=== PATIENT | female | born 1960 | race Caucasian/White ===

== ENCOUNTER 2021-10-03 16:07 | Inpatient (IN) | payer MEDICARE, MEDICAID ==
[~2021-10-03] VITALS: Ht 160 cm; Wt 110.7 kg
[2021-10-03 17:59] LABS: BASOPHILS % 0.8 % (0.0-2.0); EOSINOPHILS % 0.6 % (0.0-5.0); HEMATOCRIT. 36.2 % (36.0-48.0); HEMOGLOBIN. 11.4 g/dL (12.0-16.0); LYMPHOCYTES % 11.5 % (20.0-50.0); MEAN CORPUSCULAR HEMOGLOBIN 24.3 pg (28.0-32.0); MEAN CORPUSCULAR VOLUME 77.4 fL (81.0-99.0); MONOCYTES % 4.7 % (2.0-8.0); NEUTROPHILS % 82.4 % (40.0-76.0); PLATELET 707 x1000/uL (130-400); RED BLOOD CELL COUNT 4.68 mill/uL (4.2-5.4); RED CELL DISTRIBUTION WIDTH 15.7 % (11.6-14.6)
[2021-10-03 18:02] LABS: CHLORIDE 93 mEq/L (98-107)
[2021-10-04] VITALS (8 sets, daily range): BP systolic 109–156; BP diastolic 48–79
[2021-10-04] MEDS ORDERED: DEXTROSE 50% WATER 50ML SYRINGE IV PRN (01:30)
[2021-10-04] MEDS ORDERED: ACETAMINOPHEN 650MG/20.3ML UDC PO PRN (01:30)
[2021-10-04] MEDS ORDERED: SODIUM CHLORIDE 0.9% 1,000 ML IV SCH (01:30)
[2021-10-04] MEDS ORDERED: AMLO10TA4 PO (02:30)
[2021-10-04] MEDS ORDERED: LINA5TAB PO (02:30)
[2021-10-04] MEDS ORDERED: LACT10SO7 PO (02:30)
[2021-10-04] MEDS ORDERED: LEVO100T PO (02:30)
[2021-10-04] MEDS ORDERED: METF-416 PO (02:30)
[2021-10-04] MEDS ORDERED: LACT1CAP60 PO (02:30)
[2021-10-04] MEDS ORDERED: ASPI-1497 PO (02:30)
[2021-10-04] MEDS ORDERED: XALAO EACHEYE (02:30)
[2021-10-04] MEDS ORDERED: EMPA25TA PO (02:30)
[2021-10-04] MEDS ORDERED: KEPP500 (02:30)
[2021-10-04] MEDS ORDERED: TRU10 EACHEYE (02:30)
[2021-10-04] MEDS ORDERED: OLAN7.5T3 MT (02:30)
[2021-10-04] MEDS ORDERED: HUM100IN SQ (02:30)
[2021-10-04] MEDS ORDERED: ATOR20TA PO (02:30)
[2021-10-04] MEDS ORDERED: LISI20TA31 PO (02:30)
[2021-10-04] MEDS ORDERED: IMDUR PO (02:30)
[2021-10-04] MEDS: BLOOD SUGAR DIAGNOSTIC STRIP TEST SCH ×4 (06:14→21:27)
[2021-10-04] MEDS: INSULIN LISPRO 100 UNITS/ML SUBCUT SCH ×4 (06:15→21:27)
[2021-10-04 07:45] LABS: BASOPHILS % 0.4 % (0.0-2.0); EOSINOPHILS % 1.4 % (0.0-5.0); HEMATOCRIT. 34.4 % (36.0-48.0); HEMOGLOBIN. 11.1 g/dL (12.0-16.0); LYMPHOCYTES % 13.9 % (20.0-50.0); MEAN CORPUSCULAR HEMOGLOBIN 25.2 pg (28.0-32.0); MEAN CORPUSCULAR VOLUME 78.6 fL (81.0-99.0); MEAN PLATELET VOLUME 7.7 fl (7.4-10.4); MONOCYTES % 5.7 % (2.0-8.0); NEUTROPHILS % 78.6 % (40.0-76.0); PLATELET 682 x1000/uL (130-400); RED BLOOD CELL COUNT 4.38 mill/uL (4.2-5.4); RED CELL DISTRIBUTION WIDTH 15.7 % (11.6-14.6)
[2021-10-04 08:00] LABS: CHLORIDE 96 mEq/L (98-107)
[2021-10-04] MEDS: ACETAMINOPHEN 325MG TABLET PO PRN ×3 (08:38→21:26)
[2021-10-04] MEDS: ENOXAPARIN 30MG/0.3ML SYR SUBCUT SCH ×2 (08:38→21:25)
[2021-10-04] MEDS: OLANZAPINE 2.5MG TABLET PO SCH (10:35)
[2021-10-05] VITALS: BP 150/58
[2021-10-05] MEDS: ACETAMINOPHEN 325MG TABLET PO PRN ×2 (02:15→08:36)
[2021-10-05 04:00] VITALS: BP 129/63
[2021-10-05 05:43] LABS: BASOPHILS % 0.8 % (0.0-2.0); EOSINOPHILS % 3.7 % (0.0-5.0); HEMATOCRIT. 36.6 % (36.0-48.0); LYMPHOCYTES % 20.4 % (20.0-50.0); MEAN CORPUSCULAR HEMOGLOBIN 25.9 pg (28.0-32.0); MEAN CORPUSCULAR VOLUME 78.9 fL (81.0-99.0); MEAN PLATELET VOLUME 7.7 fl (7.4-10.4); MONOCYTES % 6.9 % (2.0-8.0); NEUTROPHILS % 68.2 % (40.0-76.0); PLATELET 714 x1000/uL (130-400); RED BLOOD CELL COUNT 4.64 mill/uL (4.2-5.4); RED CELL DISTRIBUTION WIDTH 15.8 % (11.6-14.6)
[2021-10-05 06:04] LABS: CHLORIDE 95 mEq/L (98-107)
[2021-10-05] MEDS: BLOOD SUGAR DIAGNOSTIC STRIP TEST SCH ×4 (06:06→21:00)
[2021-10-05] MEDS: INSULIN LISPRO 100 UNITS/ML SUBCUT SCH ×4 (06:06→22:38)
[2021-10-05 06:11] LABS: PHOSPHORUS 3.4 mg/dL (2.5-4.9)
[2021-10-05 08:00] VITALS: BP 162/70
[2021-10-05] MEDS: OLANZAPINE 2.5MG TABLET PO SCH (08:35)
[2021-10-05] MEDS: ENOXAPARIN 30MG/0.3ML SYR SUBCUT SCH (08:35)
[2021-10-05 12:00] VITALS: BP 149/77
[2021-10-05] MEDS ORDERED: FUROSEMIDE 40MG/4ML VIAL IVP NR (13:15)
[2021-10-05] MEDS ORDERED: HYDROCODONE/ACETAMINOPHEN 5/325MG TABLET PO PRN (13:15)
[2021-10-05] MEDS: AMLODIPINE 2.5MG TABLET PO SCH (13:30)
[2021-10-05] MEDS: LEVOTHYROXINE SODIUM 100MCG TABLET PO SCH ×2 (13:30→22:36)
[2021-10-05] MEDS ORDERED: NALOXONE HCL 0.4MG/ML VIAL IV PRN (13:45)
[2021-10-05 16:00] VITALS: BP 114/62
[2021-10-05 20:00] VITALS: BP 139/58
[2021-10-05] MEDS: LEVETIRACETAM 500MG TABLET PO SCH (22:36)
[2021-10-05] MEDS: ENOXAPARIN 40MG/0.4ML SYR SUBCUT SCH (22:37)
[2021-10-06] VITALS: BP 110/65
[2021-10-06 04:00] VITALS: BP 161/80
[2021-10-06] MEDS: ACETAMINOPHEN 325MG TABLET PO PRN (05:51)
[2021-10-06 06:44] LABS: BASOPHILS % 0.8 % (0.0-2.0); EOSINOPHILS % 4.3 % (0.0-5.0); HEMOGLOBIN. 12.1 g/dL (12.0-16.0); LYMPHOCYTES % 20.7 % (20.0-50.0); MEAN CORPUSCULAR HEMOGLOBIN 25.5 pg (28.0-32.0); MEAN CORPUSCULAR VOLUME 79.9 fL (81.0-99.0); MEAN PLATELET VOLUME 7.6 fl (7.4-10.4); MONOCYTES % 8.4 % (2.0-8.0); NEUTROPHILS % 65.8 % (40.0-76.0); PLATELET 748 x1000/uL (130-400); RED BLOOD CELL COUNT 4.76 mill/uL (4.2-5.4); RED CELL DISTRIBUTION WIDTH 16.1 % (11.6-14.6)
[2021-10-06] MEDS: LEVOTHYROXINE SODIUM 100MCG TABLET PO SCH ×2 (06:56→08:44)
[2021-10-06] MEDS: BLOOD SUGAR DIAGNOSTIC STRIP TEST SCH ×4 (06:56→19:37)
[2021-10-06] MEDS: INSULIN LISPRO 100 UNITS/ML SUBCUT SCH ×4 (06:56→20:35)
[2021-10-06 07:10] LABS: C REACTIVE PROTEIN QUANT 4.9 mg/L (0.0-3.0)
[2021-10-06 08:00] VITALS: BP 171/72
[2021-10-06] MEDS: LEVETIRACETAM 500MG TABLET PO SCH (08:44)
[2021-10-06] MEDS: OLANZAPINE 2.5MG TABLET PO SCH (08:44)
[2021-10-06] MEDS: ENOXAPARIN 40MG/0.4ML SYR SUBCUT SCH ×2 (08:45→20:32)
[2021-10-06] MEDS: AMLODIPINE 2.5MG TABLET PO SCH (09:00)
[2021-10-06 12:00] VITALS: BP 187/55
[2021-10-06] MEDS ORDERED: INSLIS SUBCUT (15:53)
[2021-10-06] MEDS ORDERED: KEPP500 PO (15:53)
[2021-10-06] MEDS ORDERED: LEVO100T9 PO (15:53)
[2021-10-06] MEDS ORDERED: AMLO5TAB88 PO (15:53)
[2021-10-06] MEDS ORDERED: XALAO EACHEYE (15:53)
[2021-10-06] MEDS ORDERED: OLAN2.5T29 PO (15:53)
[2021-10-06 16:00] VITALS: BP 160/71
[2021-10-06 20:00] VITALS: BP 149/70
[2021-10-06] MEDS: LATANOPROST 0.005% OPHTH DROPS 2.5ML EACHEYE SCH (20:32)
[2021-10-07] VITALS: BP 139/80
[2021-10-07 04:00] VITALS: BP 156/71
[2021-10-07] MEDS: BLOOD SUGAR DIAGNOSTIC STRIP TEST SCH ×4 (05:03→20:19)
[2021-10-07] MEDS: LEVOTHYROXINE SODIUM 100MCG TABLET PO SCH ×2 (05:08→08:16)
[2021-10-07] MEDS: INSULIN LISPRO 100 UNITS/ML SUBCUT SCH ×4 (05:11→20:19)
[2021-10-07 06:04] LABS: BASOPHILS % 0.9 % (0.0-2.0); EOSINOPHILS % 4.3 % (0.0-5.0); HEMATOCRIT. 36.3 % (36.0-48.0); HEMOGLOBIN. 11.7 g/dL (12.0-16.0); LYMPHOCYTES % 16.8 % (20.0-50.0); MEAN CORPUSCULAR HEMOGLOBIN 25.4 pg (28.0-32.0); MEAN CORPUSCULAR VOLUME 78.9 fL (81.0-99.0); MEAN PLATELET VOLUME 7.5 fl (7.4-10.4); MONOCYTES % 6.7 % (2.0-8.0); NEUTROPHILS % 71.3 % (40.0-76.0); PLATELET 696 x1000/uL (130-400); RED CELL DISTRIBUTION WIDTH 15.7 % (11.6-14.6)
[2021-10-07 06:05] LABS: CHLORIDE 92 mEq/L (98-107)
[2021-10-07 08:00] VITALS: BP 172/87
[2021-10-07] MEDS: OLANZAPINE 2.5MG TABLET PO SCH (08:16)
[2021-10-07] MEDS: AMLODIPINE 5MG TABLET PO SCH (08:16)
[2021-10-07] MEDS: LEVETIRACETAM 500MG TABLET PO SCH (08:16)
[2021-10-07] MEDS: ACETAMINOPHEN 325MG TABLET PO PRN (08:17)
[2021-10-07] MEDS: ENOXAPARIN 40MG/0.4ML SYR SUBCUT SCH ×2 (08:17→20:18)
[2021-10-07 12:00] VITALS: BP 158/72
[2021-10-07] MEDS: FUROSEMIDE 40MG/4ML VIAL IVP NR ×2 (14:23→15:25)
[2021-10-07 16:00] VITALS: BP 174/81
[2021-10-07] MEDS: CLONIDINE 0.1MG TABLET PO PRN (17:40)
[2021-10-07 20:00] VITALS: BP 104/77
[2021-10-07] MEDS: LATANOPROST 0.005% OPHTH DROPS 2.5ML EACHEYE SCH (20:17)
[2021-10-08] VITALS: BP 128/66
[2021-10-08] MEDS: CLONIDINE 0.1MG TABLET PO PRN ×2 (01:48→08:29)
[2021-10-08] MEDS: ACETAMINOPHEN 325MG TABLET PO PRN ×3 (01:52→15:45)
[2021-10-08 04:00] VITALS: BP 159/70
[2021-10-08 06:30] LABS: BASOPHILS % 0.7 % (0.0-2.0); EOSINOPHILS % 4.5 % (0.0-5.0); HEMATOCRIT. 37.3 % (36.0-48.0); HEMOGLOBIN. 12.4 g/dL (12.0-16.0); LYMPHOCYTES % 20.1 % (20.0-50.0); MEAN CORPUSCULAR HEMOGLOBIN 25.8 pg (28.0-32.0); MEAN CORPUSCULAR VOLUME 77.7 fL (81.0-99.0); MEAN PLATELET VOLUME 7.4 fl (7.4-10.4); MONOCYTES % 7.3 % (2.0-8.0); NEUTROPHILS % 67.4 % (40.0-76.0); PLATELET 699 x1000/uL (130-400); RED CELL DISTRIBUTION WIDTH 15.8 % (11.6-14.6)
[2021-10-08] MEDS: LEVOTHYROXINE SODIUM 100MCG TABLET PO SCH ×2 (06:33→08:29)
[2021-10-08 06:53] LABS: CHLORIDE 93 mEq/L (98-107)
[2021-10-08 07:01] LABS: PHOSPHORUS 3.9 mg/dL (2.5-4.9)
[2021-10-08] MEDS: INSULIN LISPRO 100 UNITS/ML SUBCUT SCH ×4 (07:31→20:15)
[2021-10-08] MEDS: BLOOD SUGAR DIAGNOSTIC STRIP TEST SCH ×4 (07:32→20:08)
[2021-10-08 08:00] VITALS: BP 168/69
[2021-10-08] MEDS: OLANZAPINE 2.5MG TABLET PO SCH (08:29)
[2021-10-08] MEDS: ENOXAPARIN 40MG/0.4ML SYR SUBCUT SCH ×2 (08:29→20:07)
[2021-10-08] MEDS: LEVETIRACETAM 500MG TABLET PO SCH (08:29)
[2021-10-08] MEDS: AMLODIPINE 5MG TABLET PO SCH (08:29)
[2021-10-08 12:00] VITALS: BP 158/73
[2021-10-08] MEDS: CLONIDINE 0.1MG TABLET PO SCH ×2 (14:12→20:08)
[2021-10-08 16:00] VITALS: BP 141/54
[2021-10-08 20:00] VITALS: BP 147/54
[2021-10-08] MEDS: BENZTROPINE MESYLATE 0.5MG TABLET PO SCH (20:07)
[2021-10-08] MEDS: HALOPERIDOL 5MG TABLET PO SCH (20:08)
[2021-10-08] MEDS: LATANOPROST 0.005% OPHTH DROPS 2.5ML EACHEYE SCH (20:08)
[2021-10-09] VITALS: BP 140/55
[2021-10-09 04:00] VITALS: BP 168/63
[2021-10-09] MEDS: BLOOD SUGAR DIAGNOSTIC STRIP TEST SCH ×3 (05:51→16:58)
[2021-10-09] MEDS: CLONIDINE 0.1MG TABLET PO SCH ×2 (05:51→13:49)
[2021-10-09] MEDS: LEVOTHYROXINE SODIUM 100MCG TABLET PO SCH (05:51)
[2021-10-09] MEDS: INSULIN LISPRO 100 UNITS/ML SUBCUT SCH ×3 (06:00→16:58)
[2021-10-09 08:00] VITALS: BP 166/65
[2021-10-09] MEDS: LEVETIRACETAM 500MG TABLET PO SCH (08:38)
[2021-10-09] MEDS: HALOPERIDOL 5MG TABLET PO SCH (08:38)
[2021-10-09] MEDS: AMLODIPINE 5MG TABLET PO SCH (08:39)
[2021-10-09] MEDS: ENOXAPARIN 40MG/0.4ML SYR SUBCUT SCH (08:39)
[2021-10-09] MEDS: BENZTROPINE MESYLATE 0.5MG TABLET PO SCH (08:39)
[2021-10-09] MEDS: ACETAMINOPHEN 325MG TABLET PO PRN ×2 (08:47→13:53)
[2021-10-09 12:00] VITALS: BP 158/67
[2021-10-09 12:29] LABS: BASOPHILS % 1.3 % (0.0-2.0); EOSINOPHILS % 6.9 % (0.0-5.0); HEMATOCRIT. 37.6 % (36.0-48.0); HEMOGLOBIN. 11.8 g/dL (12.0-16.0); LYMPHOCYTES % 22.9 % (20.0-50.0); MEAN CORPUSCULAR HEMOGLOBIN 24.8 pg (28.0-32.0); MEAN CORPUSCULAR VOLUME 78.9 fL (81.0-99.0); MEAN PLATELET VOLUME 7.6 fl (7.4-10.4); MONOCYTES % 8.7 % (2.0-8.0); NEUTROPHILS % 60.2 % (40.0-76.0); PLATELET 702 x1000/uL (130-400); RED BLOOD CELL COUNT 4.77 mill/uL (4.2-5.4); RED CELL DISTRIBUTION WIDTH 16.3 % (11.6-14.6)
[2021-10-09 12:40] LABS: PHOSPHORUS 4.6 mg/dL (2.5-4.9)
[2021-10-09] MEDS ORDERED: BENZ0.5T43 PO (15:18)
[2021-10-09] MEDS ORDERED: HAL5 PO (15:18)
[2021-10-09 16:00] VITALS: BP 125/67
[2021-10-09 16:25] VITALS: BP 125/67
[2021-10-09] MEDS ORDERED: AMLODIPINE 5MG TABLET PO SCH (21:00)
== END 2021-10-09 19:00 | DRG 640 ==
LOC: ER 16:07 → 8WST 19:46 → ENRESERV 21:59
PROVIDERS: ADMIT Family Medicine; ATTEND Family Medicine
DX: E87.1 Hypo-osmolality and hyponatremia (principal); G93.41 Metabolic encephalopathy; Z68.41 Body mass index [BMI] 40.0-44.9, adult; E03.9 Hypothyroidism, unspecified; E11.9 Type 2 diabetes mellitus without complications; F20.9 Schizophrenia, unspecified; F31.9 Bipolar disorder, unspecified; I11.9 Hypertensive heart disease without heart failure; J44.9 Chronic obstructive pulmonary disease, unspecified; D64.9 Anemia, unspecified; E66.9 Obesity, unspecified; E78.5 Hyperlipidemia, unspecified; T43.595A Adverse effect of other antipsychotics and neuroleptics, initial encounter; R63.1 Polydipsia; F99 Mental disorder, not otherwise specified; F41.9 Anxiety disorder, unspecified; K21.9 Gastro-esophageal reflux disease without esophagitis; Z79.2 Long term (current) use of antibiotics; Z90.49 Acquired absence of other specified parts of digestive tract; Z79.84 Long term (current) use of oral hypoglycemic drugs; Z79.4 Long term (current) use of insulin; Z79.899 Other long term (current) drug therapy; Y92.89 Other specified places as the place of occurrence of the external cause
CPT/HCPCS: 36415; 71045; 80048; 80053; 82962; 83036; 83735; 83930; 84100; 84443; 84484; 84550; 85025; 85651; 86140; 87804; 97161; 99285; C1893; J1630; J1650; J1815; J1940; J7030

== ENCOUNTER 2021-10-12 23:33 | Inpatient (IN) | payer MEDICARE, MEDICAID ==
[~2021-10-12] VITALS: Ht 165.1 cm; Wt 91.2 kg
[~2021-10-12 23:33] MED LIST: AMLO10TA4 PO; AMLO5TAB88 PO; ASPI-1497 PO; ATOR20TA PO; BENZ0.5T43 PO; EMPA25TA PO; HAL5 PO; HUM100IN SQ; IMDUR PO; INSLIS SUBCUT; KEPP500 PO; LACT10SO7 PO; LACT1CAP60 PO; LEVO100T9 PO; LINA5TAB PO; LISI20TA31 PO; METF-416 PO; OLAN2.5T29 PO; OLAN7.5T3 MT; TRU10 EACHEYE; XALAO EACHEYE
[2021-10-13 01:08] LABS: BASOPHILS % 0.6 % (0.0-2.0); EOSINOPHILS % 4.8 % (0.0-5.0); HEMATOCRIT. 38.4 % (36.0-48.0); HEMOGLOBIN. 12.7 g/dL (12.0-16.0); LYMPHOCYTES % 18.1 % (20.0-50.0); MEAN CORPUSCULAR HEMOGLOBIN 25.5 pg (28.0-32.0); MEAN CORPUSCULAR VOLUME 77.4 fL (81.0-99.0); MEAN PLATELET VOLUME 6.8 fl (7.4-10.4); MONOCYTES % 7.3 % (2.0-8.0); NEUTROPHILS % 69.2 % (40.0-76.0); PLATELET 630 x1000/uL (130-400); RED BLOOD CELL COUNT 4.96 mill/uL (4.2-5.4); RED CELL DISTRIBUTION WIDTH 15.4 % (11.6-14.6)
[2021-10-13 01:17] LABS: CHLORIDE 95 mEq/L (98-107)
[2021-10-13 06:38] LABS: CLARITY URINE CLEAR (CLEAR); COLOR URINE YELLOW (YELLOW); KETONES URINE NEGATIVE (NEGATIVE); LEUKOCYTE ESTERASE URINE NEGATIVE (NEGATIVE); NITRITE URINE NEGATIVE (NEGATIVE); OCCULT BLOOD URINE 1+ (NEGATIVE); PROTEIN URINE 3+ (NEGATIVE); SPECIFIC GRAVITY URINE 1.007 (1.005-1.030); UROBILINOGEN URINE 0.2 E.U./dL (0.2-1.0)
[2021-10-13] MEDS ORDERED: FUROSEMIDE 100MG/10ML VIAL IVP SCH (09:15)
[2021-10-13] MEDS ORDERED: ONDANSETRON HCL 4MG/2ML INJ IV PRN (09:15)
[2021-10-13] MEDS: FUROSEMIDE 100MG/10ML VIAL IVP SCH ×2 (13:51→19:39)
[2021-10-13] MEDS: ACETAMINOPHEN 325MG TABLET PO PRN (14:01)
[2021-10-13] MEDS ORDERED: DEXTROSE 50% WATER 50ML SYRINGE IV PRN (19:00)
[2021-10-13] MEDS: AMLODIPINE 10MG TABLET PO SCH (19:00)
[2021-10-13 20:50] VITALS: BP 122/69
[2021-10-13 21:00] VITALS: BP 122/69
[2021-10-13] MEDS: BLOOD SUGAR DIAGNOSTIC STRIP TEST SCH (21:00)
[2021-10-13] MEDS: ENOXAPARIN 30MG/0.3ML SYR SUBCUT SCH (22:38)
[2021-10-13] MEDS: INSULIN LISPRO 100 UNITS/ML SUBCUT SCH (22:42)
[2021-10-14] VITALS: BP 148/67
[2021-10-14 04:00] VITALS: BP 138/66
[2021-10-14] MEDS: FUROSEMIDE 100MG/10ML VIAL IVP SCH ×2 (06:39→17:54)
[2021-10-14] MEDS: BLOOD SUGAR DIAGNOSTIC STRIP TEST SCH ×4 (06:39→20:48)
[2021-10-14] MEDS: ACETAMINOPHEN 325MG TABLET PO PRN ×2 (06:39→20:16)
[2021-10-14] MEDS: INSULIN LISPRO 100 UNITS/ML SUBCUT SCH ×4 (07:50→21:51)
[2021-10-14 08:00] VITALS: BP 115/61
[2021-10-14] MEDS: AMLODIPINE 10MG TABLET PO SCH (08:59)
[2021-10-14] MEDS: ENOXAPARIN 30MG/0.3ML SYR SUBCUT SCH ×2 (08:59→21:43)
[2021-10-14 11:49] VITALS: BP 155/77
[2021-10-14] MEDS ORDERED: METOLAZONE 2.5MG TABLET PO NR (14:30)
[2021-10-14 16:00] VITALS: BP 140/70
[2021-10-14 20:00] VITALS: BP 147/69
[2021-10-15] VITALS: BP 148/76
[2021-10-15 04:00] VITALS: BP 156/66
[2021-10-15] MEDS: ACETAMINOPHEN 325MG TABLET PO PRN (06:43)
[2021-10-15] MEDS: FUROSEMIDE 100MG/10ML VIAL IVP SCH ×2 (06:49→16:21)
[2021-10-15] MEDS: BLOOD SUGAR DIAGNOSTIC STRIP TEST SCH ×3 (06:50→17:20)
[2021-10-15] MEDS: INSULIN LISPRO 100 UNITS/ML SUBCUT SCH ×3 (07:41→17:33)
[2021-10-15 08:00] VITALS: BP 144/64
[2021-10-15] MEDS: AMLODIPINE 10MG TABLET PO SCH (08:59)
[2021-10-15] MEDS: ENOXAPARIN 30MG/0.3ML SYR SUBCUT SCH (08:59)
[2021-10-15] MEDS ORDERED: CLONIDINE 0.1MG TABLET PO PRN (16:00)
[2021-10-15 16:10] VITALS: BP 217/70
== END 2021-10-15 20:37 | DRG 291 ==
LOC: ER 23:33 → ENRESERV 10-13 19:07 → 6EST 10-13 20:55
PROVIDERS: ADMIT Internal Medicine; ATTEND Internal Medicine
DX: I11.0 Hypertensive heart disease with heart failure (principal); E43 Unspecified severe protein-calorie malnutrition; I50.33 Acute on chronic diastolic (congestive) heart failure; E87.1 Hypo-osmolality and hyponatremia; E66.9 Obesity, unspecified; E87.8 Other disorders of electrolyte and fluid balance, not elsewhere classified; F20.9 Schizophrenia, unspecified; E03.9 Hypothyroidism, unspecified; Z20.822 Contact with and (suspected) exposure to COVID-19; K21.9 Gastro-esophageal reflux disease without esophagitis; J44.9 Chronic obstructive pulmonary disease, unspecified; E11.9 Type 2 diabetes mellitus without complications; Z68.33 Body mass index [BMI] 33.0-33.9, adult; Z79.4 Long term (current) use of insulin; Z79.899 Other long term (current) drug therapy; Z79.890 Hormone replacement therapy; Z71.3 Dietary counseling and surveillance
CPT/HCPCS: 36415; 71045; 74176; 80048; 80053; 81003; 82962; 83605; 83880; 84484; 85025; 87426; 93005; 93306; 99285; J1650; J1815; J1940

== ENCOUNTER 2022-08-07 19:05 | Inpatient (IN) | payer MEDICARE, MEDICAID ==
[~2022-08-07] VITALS: Ht 152.4 cm; Wt 103.4 kg
[~2022-08-07 19:05] MED LIST changes: -AMLO5TAB88 PO; -ASPI-1497 PO; -EMPA25TA PO; -HAL5 PO; +HALO5TAB2 PO; -HUM100IN SQ; -IMDUR PO; -LACT10SO7 PO; -METF-416 PO; -OLAN2.5T29 PO; -OLAN7.5T3 MT; -XALAO EACHEYE
[2022-08-07 21:26] LABS: BASOPHILS % 0.3 % (0.0-2.0); EOSINOPHILS % 3.1 % (0.0-5.0); HEMATOCRIT. 30.2 % (36.0-48.0); HEMOGLOBIN. 9.9 g/dL (12.0-16.0); LYMPHOCYTES % 30.8 % (20.0-50.0); MEAN CORPUSCULAR VOLUME 79.2 fL (81.0-99.0); MEAN PLATELET VOLUME 6.7 fl (7.4-10.4); MONOCYTES % 7.7 % (2.0-8.0); NEUTROPHILS % 58.1 % (40.0-76.0); PLATELET 738 x1000/uL (130-400); RED BLOOD CELL COUNT 3.81 mill/uL (4.2-5.4); RED CELL DISTRIBUTION WIDTH 14.7 % (11.6-14.6)
[2022-08-07 21:28] LABS: CHLORIDE 100 mEq/L (98-107)
[2022-08-07 21:32] LABS: INR 0.9; PROTHROMBIN TIME 9.6 sec (9.6-11.0)
[2022-08-07 21:45] LABS: BG BASE EXCESS -1.3 mmol/L (-2.0-2.0); BG CARBOXYHEMOGLOBIN 0.3 % (0.5-1.5); BG DEOXYHEMOGLOBIN 11.3 % (0.0-5.0); BG FRACTION INSPIRED OXYGEN 21; BG HCO3 ACT 22.8 mmol/L (22.0-26.0); BG METHEMOGLOBIN 0.1 % (0.0-1.5); BG OXYGEN SATURATION 88.7 % (92.0-98.5); BG OXYHEMOGLOBIN 88.3 % (94.0-97.0); BG PCO2 35.8 mmHg (35.0-45.0); BG PH 7.422 (7.350-7.450); BG PO2 53.8 mmHg (75.0-100.0); BG SAMPLE SITE LEFT RADIAL; BG TOTAL HEMOGLOBIN 10.5 g/dL (12.0-18.0); BG VENT MODE ROOM AIR
[2022-08-08] VITALS (7 sets, daily range): BP systolic 109–182; BP diastolic 61–82
[2022-08-08] MEDS ORDERED: FAMOTIDINE 20MG/2ML VIAL IV ONE (00:15)
[2022-08-08] MEDS ORDERED: MAGNESIUM/ALUMINUM HYDROXIDE/SIMETHICONE 30ML UDC PO ONE (00:15)
[2022-08-08] MEDS ORDERED: CEFTRIAXONE 1 G PREMIX 50 ML IV ONE (00:30)
[2022-08-08 01:17] LABS: CLARITY URINE CLEAR (CLEAR); COLOR URINE YELLOW (YELLOW); KETONES URINE NEGATIVE (NEGATIVE); OCCULT BLOOD URINE NEGATIVE (NEGATIVE); PH URINE 6.5 (4.5-8.0); PROTEIN URINE 2+ (NEGATIVE)
[2022-08-08 01:18] LABS: LEUKOCYTE ESTERASE URINE NEGATIVE (NEGATIVE); NITRITE URINE NEGATIVE (NEGATIVE); UROBILINOGEN URINE 0.2 E.U./dL (0.2-1.0)
[2022-08-08] MEDS ORDERED: ONDANSETRON HCL 4MG/2ML INJ IV PRN (06:30)
[2022-08-08] MEDS ORDERED: GUAIFENESIN-DM 200MG-20MG/10ML UDC PO PRN (06:30)
[2022-08-08] MEDS ORDERED: LEVOTHYROXINE SODIUM 100MCG TABLET PO ONE (06:30)
[2022-08-08] MEDS ORDERED: DEXTROSE 50% WATER 50ML SYRINGE IV PRN (06:30)
[2022-08-08] MEDS: SODIUM CHLORIDE 0.45% 1,000 ML IV SCH ×2 (08:00→21:07)
[2022-08-08] MEDS: BLOOD SUGAR DIAGNOSTIC STRIP TEST SCH ×4 (08:00→21:00)
[2022-08-08] MEDS: INSULIN LISPRO 100 UNITS/ML SUBCUT SCH ×4 (08:00→21:06)
[2022-08-08 10:15] LABS: EOSINOPHILS % 3.4 % (0.0-5.0); HEMATOCRIT. 30.4 % (36.0-48.0); LYMPHOCYTES % 28.9 % (20.0-50.0); MEAN CORPUSCULAR HEMOGLOBIN 26.4 pg (28.0-32.0); MONOCYTES % 7.3 % (2.0-8.0); NEUTROPHILS % 59.4 % (40.0-76.0); PLATELET 767 x1000/uL (130-400); RED CELL DISTRIBUTION WIDTH 14.6 % (11.6-14.6)
[2022-08-08] MEDS ORDERED: LEVOTHYROXINE SODIUM 100MCG TABLET PO NR (10:15)
[2022-08-08] MEDS: AMLODIPINE 5MG TABLET PO SCH (10:21)
[2022-08-08] MEDS: INSULIN GLARGINE 100 UNITS/ML SUBCUT SCH (10:26)
[2022-08-08 10:30] LABS: CHLORIDE 104 mEq/L (98-107)
[2022-08-08 11:09] LABS: PHOSPHORUS 3.9 mg/dL (2.5-4.9)
[2022-08-08] MEDS: IPRATROPIUM/ALBUTEROL 0.5-3(2.5)MG/3ML NEB HHN SCH ×2 (12:36→20:13)
[2022-08-08] MEDS ORDERED: LACTULOSE 20G/30ML UDC PO SCH (21:00)
[2022-08-09] MEDS ORDERED: CEFTRIAXONE 1,000 MG in DEXTROSE 5% WATER 50 ML IV SCH ×2 (01:00→09:00)
[2022-08-09] MEDS: IPRATROPIUM/ALBUTEROL 0.5-3(2.5)MG/3ML NEB HHN SCH ×4 (02:27→14:23)
[2022-08-09 04:00] VITALS: BP 172/83
[2022-08-09] MEDS: BLOOD SUGAR DIAGNOSTIC STRIP TEST SCH ×2 (07:40→13:18)
[2022-08-09 08:00] VITALS: BP 109/85
[2022-08-09] MEDS: INSULIN LISPRO 100 UNITS/ML SUBCUT SCH ×2 (08:10→13:22)
[2022-08-09] MEDS: AMLODIPINE 5MG TABLET PO SCH (09:00)
[2022-08-09] MEDS: SODIUM CHLORIDE 0.45% 1,000 ML IV SCH (09:10)
[2022-08-09] MEDS: INSULIN GLARGINE 100 UNITS/ML SUBCUT SCH (10:33)
[2022-08-09 11:05] LABS: BASOPHILS % 0.8 % (0.0-2.0); EOSINOPHILS % 3.6 % (0.0-5.0); HEMATOCRIT. 31.5 % (36.0-48.0); LYMPHOCYTES % 26.6 % (20.0-50.0); MEAN CORPUSCULAR HEMOGLOBIN 25.7 pg (28.0-32.0); MEAN CORPUSCULAR VOLUME 80.8 fL (81.0-99.0); MONOCYTES % 5.6 % (2.0-8.0); NEUTROPHILS % 63.4 % (40.0-76.0); PLATELET 742 x1000/uL (130-400); RED CELL DISTRIBUTION WIDTH 14.9 % (11.6-14.6)
[2022-08-09] MEDS ORDERED: CEPHALEXIN 250MG CAPSULE PO SCH (12:00)
[2022-08-09] MEDS ORDERED: LOSARTAN POTASSIUM 100 MG TABLET PO NR (16:15)
[2022-08-09] MEDS ORDERED: AMLODIPINE 5MG TABLET PO NR (16:15)
[2022-08-09 16:25] VITALS: BP 141/64
== END 2022-08-09 16:25 | DRG 683 ==
LOC: ER 19:05 → 7WST 08-08 00:13 → EDBEDREQ 08-08 00:20 → EDBEDREQTM 08-08 00:20 → ENRESERV 08-08 03:41 → 4WST 08-09 11:13
PROVIDERS: ADMIT Internal Medicine; ATTEND Internal Medicine
DX: N17.9 Acute kidney failure, unspecified (principal); E46 Unspecified protein-calorie malnutrition; E87.1 Hypo-osmolality and hyponatremia; Z68.41 Body mass index [BMI] 40.0-44.9, adult; I13.0 Hypertensive heart and chronic kidney disease with heart failure and stage 1 through stage 4 chronic kidney disease, or unspecified chronic kidney disease; N04.9 Nephrotic syndrome with unspecified morphologic changes; Z20.822 Contact with and (suspected) exposure to COVID-19; D63.1 Anemia in chronic kidney disease; J44.9 Chronic obstructive pulmonary disease, unspecified; I50.9 Heart failure, unspecified; E11.22 Type 2 diabetes mellitus with diabetic chronic kidney disease; N18.9 Chronic kidney disease, unspecified; E11.40 Type 2 diabetes mellitus with diabetic neuropathy, unspecified; E03.9 Hypothyroidism, unspecified; G40.909 Epilepsy, unspecified, not intractable, without status epilepticus; B35.1 Tinea unguium; F20.9 Schizophrenia, unspecified; B35.3 Tinea pedis; G89.29 Other chronic pain; Z79.899 Other long term (current) drug therapy; Z79.890 Hormone replacement therapy; Z82.49 Family history of ischemic heart disease and other diseases of the circulatory system; Z86.73 Personal history of transient ischemic attack (TIA), and cerebral infarction without residual deficits; Z90.49 Acquired absence of other specified parts of digestive tract; Z93.1 Gastrostomy status
CPT/HCPCS: 36415; 36600; 71045; 74176; 76700; 80048; 80053; 80076; 81003; 82375; 82550; 82570; 82805; 82962; 83036; 83735; 83880; 84100; 84300; 84436; 84443; 84484; 85025; 87426; 93923; 94640; 99285; J0696; J1815; J3490; J7060

== ENCOUNTER 2022-10-09 03:22 | Emergency (ER) | payer MEDICARE, MEDICAID ==
[~2022-10-09] VITALS: Ht 162.6 cm; Wt 100.0 kg
[2022-10-09] MEDS ORDERED: ACETAMINOPHEN 325MG TABLET PO ONE (04:45)
[2022-10-09 05:33] LABS: BASOPHILS % 0.6 % (0.0-2.0); EOSINOPHILS % 3.9 % (0.0-5.0); HEMATOCRIT. 31.5 % (36.0-48.0); LYMPHOCYTES % 26.5 % (20.0-50.0); MEAN CORPUSCULAR HEMOGLOBIN 25.2 pg (28.0-32.0); MEAN CORPUSCULAR VOLUME 79.4 fL (81.0-99.0); MEAN PLATELET VOLUME 6.9 fl (7.4-10.4); PLATELET 716 x1000/uL (130-400); RED BLOOD CELL COUNT 3.97 mill/uL (4.2-5.4); RED CELL DISTRIBUTION WIDTH 16.5 % (11.6-14.6)
[2022-10-09 05:34] LABS: CHLORIDE 103 mEq/L (98-107)
[2022-10-09] MEDS ORDERED: HYDRALAZINE 20MG/ML VIAL IV ONE (10:15)
[2022-10-09 10:40] VITALS: BP 154/65
== END 2022-10-09 11:04 ==
LOC: ER 03:22
DX: R51.9 Headache, unspecified (principal); N28.9 Disorder of kidney and ureter, unspecified; E11.9 Type 2 diabetes mellitus without complications; I50.9 Heart failure, unspecified; G40.909 Epilepsy, unspecified, not intractable, without status epilepticus; E03.9 Hypothyroidism, unspecified
CPT/HCPCS: 36415; 80053; 85025; 93005; 96374; 99284; J0360